=== PATIENT | female | born 1990 | race Hispanic/Latino ===

== ENCOUNTER 2019-06-23 22:39 | Emergency (ER) | payer SELFPAY ==
[2019-06-23 23:10] LABS: #Basophils 0.1 thou/uL (0.0-0.2); #Eosinphils 0.4 thou/uL (0.0-0.7); #Lymphocytes 2.1 thou/uL (1.20-3.40); #Monocytes 0.5 thou/uL (0.11-0.59); #Neutrophils 2.4 thou/uL (1.40-6.50); %Basophils 1.5 % (0.0-1.0); %Eosinophils 7.9 % (0.0-10.0); %Lymphocytes 37.8 % (21.0-51.0); %Monocytes 9.3 % (0.0-10.0); %Neutrophils 43.5 % (42.0-75.0); Mean Corpuscular HGB CONC 33.9 g/dL (32.0-36.0); Mean Corpuscular Hemoglobin 29.6 pg (27.0-31.0); Mean Corpuscular Volume 87.2 fL (78.0-98.0); Mean Platelet Volume 9.3 fL (7.4-10.4); Platelet Count 218 thou/uL (130-400); RBC Distribution Width 12.1 % (11.5-14.5); White Blood Cell (WBC) Count 5.6 thou/uL (4.8-10.8)
[2019-06-24 01:25] LABS: Bacteria/HPF 1+ HPF (None Seen); Bilirubin Negative (Negative); Blood, Urine 3+ (Negative); Clarity Clear (Clear); Glucose, Urine (Dipstick) Normal (Negative); Leukocyte 250 Leu/uL (Negative); Nitrite Negative (Negative); Protein, Urine (Dipstick) Negative (Neg-Trace); RBC/HPF Greater than 50 HPF (0-3); Urobilinogen Normal mg/dL (Less than 2); WBC/HPF 21-50 HPF (0-3)
--- NOTE | 2019-06-24 08:14 | ULT ---
Final interpretation Pelvic ultrasound: 06/23/2019 COMPARISON: None HISTORY: Pelvic cramping, pain, vaginal bleeding FINDINGS: The uterus is retroflexed. The endometrial stripe is of normal thickness, measuring 4 mm. N o intrauterine gestational sac. Normal blood flow noted within both ovaries. No ovarian or adnexal mass. IMPRESSION: Unremarkable pelvic ultrasound. Correlation with quantitative beta-hCG at this time and in 48 hours is advised. If the patient is in fact , these findings could be related to sonographically occult ectopic , normal early , or spontaneous . Code QA
[2019-06-24 22:07] LABS: Chlamydia by PCR DETECTED (NotDetected); GC by PCR Not Detected (NotDetected)
== END 2019-06-24 02:02 | disposition home or self-care (01) ==
LOC: ERS 22:39
DX: O46.91 Antepartum hemorrhage, unspecified, first trimester (principal); O23.41 Unspecified infection of urinary tract in pregnancy, first trimester; Z3A.01 Less than 8 weeks gestation of pregnancy
CPT/HCPCS: 36415; 76856; 81003; 81015; 84702; 85025; 86900; 86901; 87480; 87491; 87510; 87591; 87660

== ENCOUNTER 2020-05-06 10:35 | Inpatient (IN) | payer MEDICAID, OTHER, SELFPAY ==
[2020-05-06 11:37] LABS: Amnisure Test No Membranes Rupture (No Rupture)
[2020-05-06 11:38] LABS: Amnisure Internal Control QC ACCEPTABLE (ACCEPTABLE)
[2020-05-06] MEDS ORDERED: Bupivacaine HCl 0.25%/Epi 0.0005/PF 10 ML VIAL FS ONE (12:08)
[2020-05-06] MEDS ORDERED: hydrALAZINE 20 MG/ML VIAL SLOW IVP PRN ×2 (12:41→15:03)
--- NOTE | 2020-05-06 12:45 | PDOC.FPROB ---
FMR OB H&P: HPI - History of Present Illness Chief Complaint: LOF Indentification: 29 y/o @ 38.2 wga by 20.3 wk sono History of Present Illness: Pt is a 29 y/o F who presents today after feeling contractions beginning at 10PM last night. She states that they were strong and now she is feeling them every 15 minutes, she is uncomfortable but the pain is tolerable. She states that this AM around 9AM she was standing and felt a sudden LOF. She denied that it soaked her underwear and denies that she continues to have leaking. She endorses good FM. ROS was positive only for a mild headache and nausea. No CP/SOB, abdominal pain, vision changes. She denies any sexual activity in the past 24 hours. Denies dysuria, hematuria, vaginal discharge and itching or bleeding. 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: -Chylamydia in December 2019, this was txt and repeat testing was negative - Surgical History Sx History: -none - Social History Social History: -no TAD - Family History Family History: -non contributory FMR OB H&P: Medications - Current Home Medications: Medication Instructions Recorded Confirmed Type No122/Iron/Folic Acid 1 each PO DAILY 05/06/20 05/06/20 History [ Multi Tablet] Allergies/Adverse Reactions: Allergies Allergy/AdvReac Type Severity Reaction Status Date / Time No Known Allergies Allergy Unverified 05/06/20 11:57 FMR OB H&P: ROS - Review of Systems General: denies: fever/chills, fatigue Eyes: denies: eye pain, vision changes ENT: denies: nasal congestion, rhinorrhea, sinus pain/pressure, ear pain, sore throat Cardiovascular: denies: chest pain, palpitation, edema Respiratory: denies: cough, congestion, shortness of breath Gastrointestinal: reports: nausea. denies: abdominal pain, indigestion, bloating, cramping, vomiting, diarrhea, constipation Genitourinary (Female): reports: contractions. denies: incontinence, dysuria, hematuria, polyuria, vaginal discharge, vaginal pain, vaginal bleeding, vaginal pressure Musculoskeletal: denies: pain, stiffness, tenderness Neurologic: denies: numbness, syncope, weakness Integumentary: denies: rash FMR OB H&P: Vital Signs - Maternal Vital signs: Vital Signs - First Documented Temp Pulse Resp BP Pulse Ox 98.4 F 114 H 16 126/74 98 05/06/20 11:47 05/06/20 11:47 05/06/20 11:47 05/06/20 11:47 05/06/20 11:47 - Heart Tones Baseline: 130 Variability: moderate Acceleration: present Deceleration: absent Category: category 1 [place] contractions every: so far have seen one ctx on strip FMR OB H&P: Physical Exam - Physical Exam General: NAD, awake, alert and oriented HEENT: normocephalic and atraumatic, MMM, conjunctiva clear, grossly normal hearing, oropharynx clear Neck: supple Chest: non-tender to palpation Heart: RRR, normal S1/S2, no murmurs/rubs/gallops, pulses present General: CTAB, no respiratory distress, good air movement, no rales/rhonchi, no wheezing Abdomen: soft, gravid, non-tender Musculoskeletal: normal gait and station, FROM in all four extremities Skin: no rash, good tugor, capillary refill <2 seconds Lymphatic: no unusual bruising or bleeding, no petechia Psychiatric: intact recent and remote memory, good judgement and insight, normal mood and affect - Pelvic Exam Vulva: normal hair distribution, no lesions, no discharge Cervix: no masses, no lesions, no blood SVE: /-[address] Gould, bloody show, no pooling of fluid seen FMR OB H&P: Results - Labs Lab results: Laboratory Results - last 24 hr 05/06/20 11:13 Amnio Swab Test No Membranes Rupture FMR OB H&P: A/P Disposition: Pt is a 29 y/o @ 38.2 wga by 20.3 wk sono who presents today after feeling LOF this AM ##sIUP in third trimester -currently at 38.2 wga by 20.3 wk sono -per [facility] records, has been LTC -maternal labs have been negative -GBS positive noted on [facility] records -SVE: 4/50/-2 @ 14:00 with some mild bloody show. Speculum exam did not show pooling of fluid, physiological discharge noted -FHT: 130s, moderate variability, one ctx seen in two hours, however has been fe eling ctx/15 minutes ##Asthma -has hx of this -on albuterol inhaler -has not had sxs or had to use inhaler since december 2019 ##Hx of Chlamydia in -was found in 1st trimester and was txt with abx -no current sxs and maternal labs have been negative ##Anemia of -recent 3T labs showed Hgb of 10.9 on 03/29/20 -not taking PNV per patient ##Hx of pre-E in last -has had pre-E w/u during this which has been negative, has been prescribed ASA and has been taking this -VSS stable, no severe BPs noted on PE so far -mild BORJA and nausea for now, but does not desire medication for her sxs Plan: Pt's amnisure was negative. SVE as above 4/50/-2. No pooling on exam. Bedside u/s showed cephalic presentation. Will recheck in 1 hour and continue to monitor for any sxs of labor progression. Will orally rehydrate as well. Discussion: Date/Time: 05/06/20 1242 This H&P was discussed with Dr. Morocho and Dr. Gould who agree with the above documentation and plan. Addendum - Attending - Attending Attestation Date/Time: 05/07/20 1661 I personally evaluated the patient and discussed the management with Dr. Chaparro. I agree with the History, Examination, Assessment and Plan documented above with any addition or exceptions noted below.
[2020-05-06] MEDS ORDERED: Ondansetron HCl/PF 4 MG in Sodium Chloride 0.9% 50 ML IVPB SCH (14:30)
[2020-05-06] MEDS ORDERED: Ondansetron ORAL SOLN. 4 MG/5 ML UDCUP PO SCH (14:41)
[2020-05-06] MEDS ORDERED: Ibuprofen 800 MG TAB PO PRN (15:03)
[2020-05-06] MEDS ORDERED: Lidocaine 1% (PF) 30 ML VIAL SC PRN (15:03)
[2020-05-06] MEDS ORDERED: Misoprostol 200 MCG TAB PR PRN (15:03)
[2020-05-06] MEDS ORDERED: Promethazine HCl 25 MG/ML VIAL IM PRN (15:03)
[2020-05-06] MEDS ORDERED: Methylergonovine 0.2 MG/ML VIAL IM PRN (15:03)
[2020-05-06] MEDS ORDERED: NS / Oxytocin 40 units/1000ml 1,000 ML IV PRN (15:03)
[2020-05-06] MEDS ORDERED: Ondansetron PF 4 MG/2 ML Vial IVP PRN (15:03)
[2020-05-06] MEDS ORDERED: Diphenoxylate HCl/Atropine Tablet PO PRN ×2 (15:03)
[2020-05-06] MEDS ORDERED: Penicillin G Potassium 5 MILL.UNITS in Sodium Chloride 0.9% 100 ML IVPB SCH (15:15)
--- NOTE | 2020-05-06 15:19 | PDOC.LDPN ---
Labor & Delivery Progress Note - Subjective Subjective: no concerns - Objective Vital signs reviewed and normal: yes General: NAD Uterine fundus: non tender SVE: /-2 Effacement: 50% Station: -2 FHT: category 1 [place] contractions every: feeling them every 15 minutes but not shown on toco Plan: continue plan of care -: Pt is a 29 y/o @ 38.2 wga by 20.3 wk sono who presents after feeling LOF this AM. ##sIUP in third trimester -currently at 38.2 wga by 20.3 wk sono -per [facility] records, has been LTC -maternal labs have been negative -GBS positive noted on [facility] records -SVE: /-2 ~14:00 with some mild bloody show. Speculum exam did not show p ooling of fluid, physiological discharge noted - @ ~15:00 change noted in the last hour -FHT: 130s, moderate variability, one ctx seen in two hours, however has been feeling ctx/15 minutes -Bedside ultrasound done showed that fetus was cephalic ##Asthma -has hx of this -on albuterol inhaler -has not had sxs or had to use inhaler since december 2019 ##Hx of Chlamydia in -was found in 1st trimester and was txt with abx -no current sxs and maternal labs have been negative ##Anemia of -recent 3T labs showed Hgb of 10.9 on 03/29/20 -not taking PNV per patient ##Hx of pre-E in last -has had pre-E w/u during this which has been negative, has been prescribed ASA and has been taking this -VSS stable, no severe BPs noted on PE so far -mild BORJA and nausea for now, but does not desire medication for her sxs Plan: Will admit to OB inpatient for monitoring of labor progression as she has made change in the last hour, see SVE above. GBS PPX will be started due to her GBS status. Will continue to monitor. She is unsure at this moment if she wants to have epidural. Continue expectant labor management. Case with discussed with Dr. Londono and Dr. Gould who agree to current plan and management. Addendum - Attending - Attending Attestation Date/Time: 05/06/20 1650 Discussed with the team. Expectant management pending GBS ppx and continued reassuring status.
[2020-05-06] MEDS: Lactated Ringer's 1,000 ML IV SCH ×2 (15:40→18:06)
[2020-05-06 15:56] LABS: Hemoglobin 11.6 g/dL (12.0-16.0); Mean Corpuscular HGB CONC 33.1 g/dL (32.0-36.0); Mean Corpuscular Hemoglobin 26.4 pg (27.0-31.0); Mean Corpuscular Volume 79.8 fL (78.0-98.0); Platelet Count 213 thou/uL (130-400); RBC Distribution Width 12.6 % (11.5-14.5); White Blood Cell (WBC) Count 8.2 thou/uL (4.8-10.8)
[2020-05-06 16:33] LABS: HBSAg Index 0.16 S/CO (0-0.99); Hep B Surf Ag Non-Reactive S/CO (NonReactive); Syphilis Antibody Nonreactive (Nonreactive); Syphilis Antibody Index 0.02 S/CO (<1.00 Non-Reactive)
[2020-05-06] MEDS ORDERED: Fentanyl 4 mcg/Bup 0.1% Cadd 100 ML ONE (17:27)
--- NOTE | 2020-05-06 17:30 | PDOC.LDPN ---
Labor & Delivery Progress Note - Subjective Subjective: painful contractions - Objective Vital signs reviewed and normal: yes General: breathing through contractions SVE: 6/80/-2 Effacement: 75% Station: -2 FHT: category 1, variability present [place] contractions every: 2-4 min Plan: continue plan of care -: continue expectant mgmt PCN G started 1615 Recheck in 2-4 hours
--- NOTE | 2020-05-06 19:40 | PDOC.LDPN ---
Labor & Delivery Progress Note - Subjective Subjective: comfortable (with epidural) - Objective Vital signs reviewed and normal: yes General: NAD Uterine fundus: non tender SVE: /-2 FHT: category 1, variability present [place] contractions every: irregular, Q3-5 mins Plan: continue plan of care -: Pt is a 29 y/o @ 38.2 wga by 20.3 wk sono who presents after feeling LOF this AM. sIUP - s/p epidural - SVE -2 @ 1930 - FHT: Cat 1 strip, janelle q3-5 mins - Continue expectant management GBS positive - Receiving Pen G, started @ 1615 next dose will start @ 1999 - continue expectant management until adequate ppx achieved - once adequately treated, will likely start pitocin Discussed with attending Dr. Collins
[2020-05-06] MEDS: Penicillin G 2.5 MILL.units 2.5 MILL.UNITS in Premix Bag 1 BAG IVPB SCH (20:12)
[2020-05-06] MEDS ORDERED: NS w/ Oxytocin 30 units 500 ML ONE (20:36)
[2020-05-06] MEDS ORDERED: NS w/ Oxytocin 30 units 500 ML IVPB SCH ×2 (20:45)
--- NOTE | 2020-05-06 21:58 | PDOC.LDPN ---
Labor & Delivery Progress Note - Subjective Subjective: comfortable - Objective Vital signs reviewed and normal: yes General: NAD SVE: /-2 FHT: category 1, variability present [place] contractions every: 3-5 mins Other exam findings: Baby in LOT position based on suture exam AROM: bloody fluid IUPC placed: yes Plan: continue plan of care, pitocin for augmentation -: Pt is a 29 y/o @ 38.2 wga by 20.3 wk sono who presents after feeling LOF this AM. sIUP - s/p epidural - SVE /-2 @ 193, unchanged @ 2129 - FHT: Cat 1 strip, janelle q3-5 mins - IUPC placed @ 2129 - Continue pitocin augmentation GBS positive - Receiving Pen G, started @ 161, has received adequate ppx - Now on second dose of Pen G Discussed with attending Dr. Collins
[2020-05-06] MEDS ORDERED: Misoprostol 200 MCG TAB ONE ×2 (22:58→23:23)
[2020-05-06] MEDS ORDERED: Carboprost 250 MCG/ML AMP ONE (23:24)
[2020-05-06] MEDS ORDERED: Methylergonovine 0.2 MG/ML VIAL ONE (23:24)
[2020-05-07 00:17] LABS: SARS-CoV-2 PCR by NAA Not Detected (NotDetected)
--- NOTE | 2020-05-07 02:02 | PDOC.OPDEL ---
OB Operative/Delivery Note Delivery Dr/Surgeon: Theresa/Rafael Assist: Attending Dr. Collins Pre-Delivery Diagnosis: active labor Procedure/Post Delivery Dx: spontaneous vaginal delivery Weeks gestation: 39 (39.2) Anesthesia: epidural - Additional Findings/Plan Placenta delivered: spontaneous Repaired Obstetrical Laceration: none Estimated blood loss: 105 cc Compilations/Other Findings: Delivering Physician Attending Procedure: Spontaneous Vaginal Delivery Anesthesia: epidural, Local for Repair EBL: 105 ml Pre-op Diagnosis: 1. Term intrauterine in labor 2. hx of preeclampsia 3. hx of Chlamydia infection, treated Post-op Diagnosis: 1. Term intrauterine , delivered 2. same as above Indications: A 29y/o female presents in active labor Delivery Note: This is 29yo F @ 38.2 wks who delivered a viable M infant at 2336. Following an uneventful antepartum course, a vigorous M was delivered over an intact perineum in the occipitoanterior position. Anterior Shoulder and then remainder of the body delivered. Nuchal cordX1 was delivered through. The head was held down and mouth and nares were bulb suctioned. Cord clamped and cut and cord blood collected. Placenta delivered intact with a 3 vessel cord noted. Fundal massage was performed and the fundus was firm. The cervix and vagina were inspected and found to be free of lacerations. Infant went to nursery in good condition for routine care. Apgars were 8/9 at 1 & 5 minutes, respectively. Patient tolerated delivery well and went to after routine recovery/care. Post delivery plan: routine recovery Addendum - Attending - Attending Attestation Date/Time: 05/30/20 1305 I, Brian Collins MD, personally evaluated the patient and discussed indications for the procedure described by Dr. Cardenas on 05/07/20. I directly supervised and participated in the Spontaneous Vaginal Delivery and I agree with the description of procedure as documented above without any addition or exceptions.
[2020-05-07] MEDS ORDERED: Preparation H Ointment 28 GM TUBE PR PRN (02:09)
[2020-05-07] MEDS ORDERED: Bisacodyl 10 MG SUPP PR PRN (02:09)
[2020-05-07] MEDS ORDERED: hydrALAZINE 20 MG/ML VIAL SLOW IVP PRN (02:09)
[2020-05-07] MEDS ORDERED: NS / Oxytocin 40 units/1000ml 1,000 ML IV SCH (02:09)
[2020-05-07] MEDS ORDERED: Milk Of Magnesia 30 ML UDCUP PO PRN (02:09)
[2020-05-07] MEDS ORDERED: Lanolin Ointment 7 GM TUBE TOP PRN (02:09)
[2020-05-07] MEDS ORDERED: Ondansetron PF 4 MG/2 ML Vial IVP PRN (02:09)
[2020-05-07] MEDS: Ibuprofen 800 MG TAB PO SCH ×3 (06:12→21:04)
--- NOTE | 2020-05-07 07:09 | PDOC.PP ---
Post Progress Note Post Day #: 1 Subjective: Doing well, no questions or concerns. PO intake tolerated: yes Flatus: yes Ambulation: yes Vital Signs (12 hours) Temp Pulse Resp BP BP Pulse Ox 05/07/20 04:00 98.4 F 76 18 104/54 L 05/07/20 02:55 97.9 F 75 18 97/53 L 05/07/20 01:55 98.6 F 66 18 114/65 98 05/07/20 01:52 98.6 F 66 18 114/65 98 Weight Weight 79.379 kg - Physical Examination General: NAD Cardiovascular: no m/r/g, RRR Respiratory: clear to auscultation bilaterally, non-labored breathing Abdominal: + bowel sounds, lochia, no distention, appropriately TTP Neurological: no gross focal deficits Psychiatric: A&Ox3, normal affect Result Diagrams: 05/06/20 15:43 Additional Labs: Post Labs Hep Bs Antigen Non-Reactive S/CO (NonReactive) 05/06/20 15:43 Blood Type O POSITIVE 05/06/20 15:43 - Assessment/Plan PPD #1 s/p 05/06/20 @ 2336. - QBL total 142mL - No lacs - Routine pp care - ibuprofen rasheed for pain - Will obtain 24hour bili on baby in case of d/c tomorrow morning. Asthma -will monitor for s/s Hx of Chlamydia in Anemia of - hb 11.6 on admission. Addendum - Attending - Attending Attestation Date/Time: 05/07/20 0376 I personally evaluated the patient and discussed the management with Dr. Flanagan. I agree with the History, Examination, Assessment and Plan documented above with any addition or exceptions noted below.
[2020-05-07] MEDS: Penicillin G 2.5 MILL.units 2.5 MILL.UNITS in Premix Bag 1 BAG IVPB SCH (08:45)
[2020-05-07] MEDS ORDERED: Adacel (T-DAP) 0.5 ML SYRINGE IM ONE (09:00)
[2020-05-07] MEDS ORDERED: Polyethylene Glycol 3350 17 GM Packet PO SCH (09:00)
[2020-05-07] MEDS: Ferrous Sulfate 325 MG TAB PO SCH ×2 (10:47→16:20)
[2020-05-07] MEDS: Prenatal Vitamin 1 TAB PO SCH (11:02)
[2020-05-07] MEDS: Docusate Calcium (SURFAK) 240 MG CAP PO SCH ×2 (11:03→21:04)
[2020-05-07] MEDS: Acetaminophen 500 MG TAB PO SCH (17:30)
[2020-05-08] MEDS: Acetaminophen 500 MG TAB PO SCH ×2 (01:21→10:14)
[2020-05-08] MEDS: Ibuprofen 800 MG TAB PO SCH (05:02)
--- NOTE | 2020-05-08 06:50 | PDOC.PP ---
Post Progress Note Post Day #: 2 Subjective: Doing well, no concerns. PO intake tolerated: yes Flatus: yes Ambulation: yes Vital Signs (12 hours) Temp Pulse Resp BP Pulse Ox 05/07/20 19:13 98.5 F 78 12 99/51 L 98 Weight Weight 79.379 kg - Physical Examination General: NAD Cardiovascular: no m/r/g, RRR Respiratory: clear to auscultation bilaterally, non-labored breathing Abdominal: + bowel sounds, no distention, appropriately TTP Neurological: no gross focal deficits Psychiatric: A&Ox3, normal affect Result Diagrams: 05/06/20 15:43 Additional Labs: Post Labs Hep Bs Antigen Non-Reactive S/CO (NonReactive) 05/06/20 15:43 Blood Type O POSITIVE 05/06/20 15:43 - Assessment/Plan PPD #2 s/p 05/06/20 @ 2336. - QBL total 142mL + 15mL - No lacs - Routine pp care - ibuprofen prn for pain on d/c - d/c home today. Asthma -will monitor for s/s Hx of Chlamydia in Anemia of - hb 11.6 on admission. Ernestina HERMOSILLO PGY2 Addendum - Attending - Attending Attestation Date/Time: 05/08/20 1242 I personally evaluated the patient and discussed the management with Dr. Flanagan I agree with the History, Examination, Assessment and Plan documented above with any addition or exceptions noted below. 29 yo now s/p uncomplicated on 05/06/20 Patient doing well. Lochia minimal. Pain controlled on PO meds. Voiding well. Ambulating. No complications with breast feeding. Supplementing with bottle as well. Will need 2 wk and 6 wk follow up. Risk for PPD. Unsure on contraception. Need to discuss family planning and family size that patient desires. Ok to d/c to home today. Continue PNV. Call PNC to make follow up OV in 2 wks. Monitor for PPD and preE. [place]
[2020-05-08] MEDS: Prenatal Vitamin 1 TAB PO SCH (08:42)
[2020-05-08] MEDS: Ferrous Sulfate 325 MG TAB PO SCH (08:42)
[2020-05-08] MEDS: Docusate Calcium (SURFAK) 240 MG CAP PO SCH (08:42)
[2020-05-08 08:56] VITALS: BP 109/58; TEMP 98.3
== END 2020-05-08 12:30 | disposition home or self-care (01) | DRG 807 ==
LOC: L&D/OP 10:35 → L&D 15:03 → 3SW 05-07 01:53
PROVIDERS: ADMIT Family Medicine; ATTEND Family Medicine
PROC: 10E0XZZ Delivery of Products of Conception, External Approach (ICD-10-PCS; principal; 2020-05-06)
PROC: 10907ZC Drainage of Amniotic Fluid, Therapeutic from Products of Conception, Via Natural or Artificial Opening (ICD-10-PCS; 2020-05-06)
PROC: 10H07YZ Insertion of Other Device into Products of Conception, Via Natural or Artificial Opening (ICD-10-PCS; 2020-05-06)
DX: O99.824 Streptococcus B carrier state complicating childbirth (principal); Z37.0 Single live birth; Z3A.38 38 weeks gestation of pregnancy; Z20.822 Contact with and (suspected) exposure to COVID-19; J45.909 Unspecified asthma, uncomplicated; O99.52 Diseases of the respiratory system complicating childbirth; O99.02 Anemia complicating childbirth; D64.9 Anemia, unspecified; Z86.19 Personal history of other infectious and parasitic diseases
CPT/HCPCS: 36415; 51702; 84112; 85027; 86780; 86850; 86900; 86901; 87340; 87635; 99285; J2405; J2540; J2590; J3490; Q0162; U0003; U0005

== ENCOUNTER 2024-01-13 16:56 | Emergency (ER) | payer OTHER, SELFPAY ==
[2024-01-13] MEDS ORDERED: Cyclobenzaprine 10 MG TAB ONE (17:28)
[2024-01-13] MEDS ORDERED: Acetaminophen 500 MG TAB ONE (17:28)
== END 2024-01-13 17:35 | disposition home or self-care (01) ==
LOC: ERS 16:56
DX: M54.41 Lumbago with sciatica, right side (principal)